=== PATIENT | male | born 1985 | race Caucasian/White ===

== ENCOUNTER 2019-01-04 08:59 | Outpatient (CLI) | payer MEDICAID, OTHER | END 2019-01-04 23:59 | disposition home or self-care (01) | LOC: ROC 08:59 | PROVIDERS: ATTEND Radiology Radiation Oncology | DX: D35.2 Benign neoplasm of pituitary gland (principal) | CPT/HCPCS: 99214; G0463 ==

== ENCOUNTER 2019-01-23 12:39 | Outpatient (CLI) | payer MEDICAID, OTHER | END 2019-01-23 23:59 | disposition home or self-care (01) | LOC: CFH 12:39 | PROVIDERS: ATTEND Radiology Radiation Oncology | DX: Z02.9 Encounter for administrative examinations, unspecified (principal) ==

== ENCOUNTER → 2019-01-30 | Outpatient (CLI) | payer MEDICAID ==
[~2019-01-30] MED LIST: GADOBUTROL 10 MMOL/10 ML PFS ONE
== END | disposition home or self-care (01) ==
LOC: CFH 09:22
PROVIDERS: ATTEND Radiology Radiation Oncology
DX: D35.2 Benign neoplasm of pituitary gland (principal)
CPT/HCPCS: 70553; A9585

== ENCOUNTER 2019-09-05 07:04 | Outpatient (CLI) | payer MEDICAID | END 2019-09-05 23:59 | disposition home or self-care (01) | LOC: ROC 07:04 | PROVIDERS: ATTEND Radiology Radiation Oncology | DX: D35.2 Benign neoplasm of pituitary gland (principal); Z92.3 Personal history of irradiation; Z79.899 Other long term (current) drug therapy | CPT/HCPCS: 99213; G0463 ==